=== PATIENT | female | born 1975 | race Caucasian/White ===

== ENCOUNTER 2021-07-13 21:39 | Observation (INO) | payer OTHER ==
[2021-07-13] MEDS ORDERED: Ondansetron PF 4 MG/2 ML Vial ONE (22:34)
[2021-07-13] MEDS ORDERED: Morphine 4 MG/ML VIAL ONE (22:34)
[2021-07-13 22:42] LABS: #Basophils 0.1 10x3/uL (0.0-0.2); #Eosinphils 0.2 10x3/uL (0.0-0.5); #Monocytes 0.7 10x3/uL (0.0-1.1); #Neutrophils 4.6 10x3/uL (1.5-8.4); %Basophils 0.7 % (0.0-2.0); %Eosinophils 1.8 % (0.0-6.0); %Lymphocytes 35.4 % (18.0-47.0); %Monocytes 8.5 % (0.0-10.0); %Neutrophils 53.3 % (40.0-75.0); Hemoglobin 12.3 g/dL (12.0-15.5); Mean Corpuscular HGB CONC 33.7 g/dL (32.0-36.0); Mean Corpuscular Hemoglobin 31.5 pg (27.0-33.0); Mean Corpuscular Volume 93.6 fl (81.6-98.3); Mean Platelet Volume 9.4 fl (7.4-10.4); Platelet Count 230 10x3/uL (150-450); RBC Distribution Width 12.6 % (11.5-14.5); White Blood Cell (WBC) Count 8.7 10x3/uL (3.5-10.5)
[2021-07-13 22:45] LABS: BHCG - Serum Negative (NEGATIVE); Pregs Control Background? CLEAR/WHITE (CLR/WHITE); Pregs Control Bar Appear? YES (CONTROL BAR)
[2021-07-13 22:52] LABS: ALT (SGPT) 19 U/L (8-55); AST (SGOT) 14 U/L (5-34); Albumin 3.5 g/dL (3.5-5.0); Alkaline Phosphatase 86 U/L (40-110); Anion Gap 11 mmol/L (10-20); BUN (Urea Nitrogen) 8 mg/dL (7.0-18.7); Bilirubin, Total 0.2 mg/dL (0.2-1.2); Calc. Creatinine Clearance 0 mL/min (70-130); Calcium 8.7 mg/dL (7.8-10.44); Carbon Dioxide 29 mmol/L (22-29); Chloride 102 mmol/L (98-107); Glucose 117 mg/dL (70-105); Lipase 25 U/L (8-78); Potassium 3.4 mmol/L (3.5-5.1); Protein, Total 6.5 g/dL (6.0-8.3); Sodium 139 mmol/L (136-145)
[2021-07-13 23:14] LABS: SARS-CoV-2 NAA Rapid Test Not Detected (NotDetected)
[2021-07-13] MEDS ORDERED: Dexamethasone 10 MG/ML VIAL ONE (23:22)
[2021-07-13 23:46] LABS: Bilirubin Neg (Negative); Blood, Urine Negative (Negative); Clarity Clear (Clear); Glucose, Urine (Dipstick) Normal (Negative); Ketone, Urine Negative (Negative); Leukocyte 25 (Negative); Nitrite Negative (Negative); Protein, Urine (Dipstick) 15 mg/dl (Neg-Trace); Specific Gravity, Urine 1.015 (1.002-1.036); Urobilinogen Normal mg/dL (Less than 2)
[2021-07-13 23:59] LABS: Bacteria/HPF Rare-Few HPF (None Seen); RBC/HPF 0-3 HPF (0-3)
[2021-07-14] MEDS ORDERED: HumaLOG 300 UNITS/3 ML VIAL SC PRN (01:04)
[2021-07-14] MEDS ORDERED: Guaifenesin DM 100-10/5 ML UDCUP PO PRN (01:04)
[2021-07-14] MEDS ORDERED: Acetaminophen 325 MG TAB PO PRN (01:04)
[2021-07-14] MEDS ORDERED: Calcium Carbonate 500 MG ChewTAB PO PRN (01:04)
[2021-07-14] MEDS ORDERED: Dextrose 5% in Water 1,000 ML IV PRN (01:04)
[2021-07-14] MEDS ORDERED: Dextrose 50% Abboject 50 ML SYRINGE SLOW IVP PRN (01:04)
[2021-07-14] MEDS ORDERED: Ondansetron PF 4 MG/2 ML Vial IVP PRN (01:04)
[2021-07-14] MEDS ORDERED: Ventolin HFA Inhaler 60 PUFF INHALER INH PRN (01:07)
[2021-07-14] MEDS ORDERED: Morphine 4 MG/ML VIAL SLOW IVP PRN (01:13)
[2021-07-14] MEDS ORDERED: Enoxaparin Sodium 30 MG/0.3 ML SYRINGE ONE (01:14)
[2021-07-14] MEDS ORDERED: Enoxaparin Sodium 100 MG/ML SYRINGE ONE (01:14)
[2021-07-14] MEDS ORDERED: Ventolin HFA Inhaler 60 PUFF INHALER INH SCH (01:15)
[2021-07-14] MEDS ORDERED: Pantoprazole 40 MG VIAL IVP SCH ×2 (01:15→21:00)
[2021-07-14] MEDS ORDERED: Sodium Chloride 0.9% 1,000 ML IV SCH (01:15)
[2021-07-14] MEDS ORDERED: Potassium Chloride 20 MEQ TAB PO SCH (01:15)
[2021-07-14] MEDS ORDERED: Morphine 4 MG/ML VIAL ONE (01:31)
[2021-07-14] MEDS ORDERED: Ondansetron PF 4 MG/2 ML Vial ONE (01:31)
[2021-07-14 03:06] VITALS: BMI 52.4
[2021-07-14] MEDS: HYDROcodone/Acetaminophen 5/325 mg Tablet PO PRN ×2 (03:51→10:20)
[2021-07-14] MEDS: Senokot S 8.6-50 MG TAB PO PRN (03:51)
[2021-07-14] MEDS: Zolpidem Tartrate 5 MG TAB PO PRN ×2 (03:52→20:37)
[2021-07-14] MEDS: ALPRAZolam 0.25 MG TAB PO PRN ×2 (03:52→20:38)
[2021-07-14 04:11] LABS: Legionella Urinary Ag Negative (Negative); Strep pneumo Urine Ag NEGATIVE (NEGATIVE)
[2021-07-14 05:05] LABS: ALT (SGPT) 20 U/L (8-55); AST (SGOT) 16 U/L (5-34); Albumin 3.7 g/dL (3.5-5.0); Alkaline Phosphatase 91 U/L (40-110); Anion Gap 16 mmol/L (10-20); BUN (Urea Nitrogen) 9 mg/dL (7.0-18.7); Bilirubin, Total 0.2 mg/dL (0.2-1.2); Calc. Creatinine Clearance 191 mL/min (70-130); Calcium 8.7 mg/dL (7.8-10.44); Carbon Dioxide 21 mmol/L (22-29); Chloride 105 mmol/L (98-107); Globulin 3.3 g/dL (2.4-3.5); Glucose 149 mg/dL (70-105); Potassium 4.2 mmol/L (3.5-5.1); Sodium 138 mmol/L (136-145)
[2021-07-14 05:20] LABS: #Monocytes 0.2 10x3/uL (0.0-1.1); #Neutrophils 5.5 10x3/uL (1.5-8.4); %Basophils 0.5 % (0.0-2.0); %Eosinophils 0.3 % (0.0-6.0); %Lymphocytes 21.7 % (18.0-47.0); %Monocytes 2.4 % (0.0-10.0); %Neutrophils 74.4 % (40.0-75.0); Hemoglobin 12.8 g/dL (12.0-15.5); Mean Corpuscular HGB CONC 33.6 g/dL (32.0-36.0); Mean Corpuscular Hemoglobin 31.5 pg (27.0-33.0); Mean Corpuscular Volume 93.8 fl (81.6-98.3); Platelet Count 182 10x3/uL (150-450); RBC Distribution Width 12.7 % (11.5-14.5); Red Blood Cell (RBC) Count 4.06 10x6/uL (3.90-5.03); White Blood Cell (WBC) Count 7.4 10x3/uL (3.5-10.5)
[2021-07-14 05:21] LABS: RBC Morphology Normal
[2021-07-14 05:22] LABS: Platelet Morphology Comment Appears Adequate
[2021-07-14] MEDS ORDERED: Levothyroxine Sodium 88 MCG TAB PO SCH (05:30)
[2021-07-14] MEDS: Venlafaxine HCl XR 75 MG CAP PO SCH (08:51)
[2021-07-14] MEDS: Fluticasone Propionate Nasal Spray 16 gm Bottle NASAL SCH (08:51)
[2021-07-14] MEDS: Topiramate 100 MG TAB PO SCH ×2 (08:51→20:38)
[2021-07-14] MEDS: Multivitamin W/ Minerals 1 TAB PO SCH (08:51)
[2021-07-14] MEDS: predniSONE 20 MG TAB PO SCH (08:51)
[2021-07-14] MEDS ORDERED: Ziprasidone 20 MG CAP PO SCH (21:00)
[2021-07-15] MEDS: Senokot S 8.6-50 MG TAB PO PRN (01:13)
[2021-07-15] MEDS: Zolpidem Tartrate 5 MG TAB PO PRN (01:14)
[2021-07-15] MEDS ORDERED: Levothyroxine Sodium 88 MCG TAB PO SCH ×2 (02:15→06:00)
[2021-07-15] MEDS: Topiramate 100 MG TAB PO SCH (08:31)
[2021-07-15] MEDS: predniSONE 20 MG TAB PO SCH (08:31)
[2021-07-15] MEDS: Multivitamin W/ Minerals 1 TAB PO SCH (08:31)
[2021-07-15] MEDS: Venlafaxine HCl XR 75 MG CAP PO SCH (08:31)
[2021-07-15] MEDS: Fluticasone Propionate Nasal Spray 16 gm Bottle NASAL SCH (08:32)
[2021-07-15 13:26] VITALS: BP 125/83; TEMP 96.7
== END 2021-07-15 15:42 | disposition home or self-care (01) ==
LOC: CSHERS 21:39 → CSHERHOLD 07-14 01:38 → INTOOBSV 07-14 01:38 → CSHTELE 07-14 02:59
PROVIDERS: ADMIT Student in an Organized Health Care Education/Training Program; ATTEND Internal Medicine
DX: R10.31 Right lower quadrant pain (principal); E87.6 Hypokalemia; R07.9 Chest pain, unspecified; R03.0 Elevated blood-pressure reading, without diagnosis of hypertension; F41.9 Anxiety disorder, unspecified; F31.9 Bipolar disorder, unspecified; F90.9 Attention-deficit hyperactivity disorder, unspecified type; Z79.899 Other long term (current) drug therapy; E66.01 Morbid (severe) obesity due to excess calories; J45.909 Unspecified asthma, uncomplicated; Z20.822 Contact with and (suspected) exposure to COVID-19
CPT/HCPCS: 36415; 36416; 71045; 71275; 74177; 80053; 81003; 81015; 83605; 83690; 83880; 84443; 84484; 84703; 85025; 87040; 87077; 87086; 87186; 87449; 87804; 87899; 93005; 93010; 94760; 96365; 96372; 96375; 96376; C9113; G0378; J1100; J1650; J1815; J1956; J2270; J2405; J7050; J7512; U0002

== ENCOUNTER 2022-07-14 18:37 | Emergency (ER) | payer OTHER ==
[~2022-07-14 18:37] MED LIST: Iopamidol 300 61% 100 ML VIAL FS ONE
[2022-07-14 19:39] LABS: #Basophils 0.1 10x3/uL (0.0-0.2); #Eosinphils 0.1 10x3/uL (0.0-0.5); #Monocytes 0.5 10x3/uL (0.0-1.1); #Neutrophils 4.9 10x3/uL (1.5-8.4); %Basophils 0.5 % (0.0-2.0); %Eosinophils 1.4 % (0.0-6.0); %Lymphocytes 39.4 % (18.0-47.0); %Monocytes 5.7 % (0.0-10.0); %Neutrophils 52.7 % (40.0-75.0); Hemoglobin 12.7 g/dL (12.0-15.5); Mean Corpuscular HGB CONC 35.2 g/dL (32.0-36.0); Mean Corpuscular Hemoglobin 30.7 pg (27.0-33.0); Mean Corpuscular Volume 87.2 fl (81.6-98.3); Platelet Count 217 10x3/uL (150-450); RBC Distribution Width 12.2 % (11.5-14.5); Red Blood Cell (RBC) Count 4.14 10x6/uL (3.90-5.03); White Blood Cell (WBC) Count 9.3 10x3/uL (3.5-10.5)
[2022-07-14 19:50] LABS: ALT (SGPT) 10 U/L (8-55); AST (SGOT) 11 U/L (5-34); Albumin 3.3 g/dL (3.5-5.0); Alkaline Phosphatase 68 U/L (40-110); Anion Gap 11 mmol/L (10-20); BUN (Urea Nitrogen) 9 mg/dL (7.0-18.7); Bilirubin, Total 0.4 mg/dL (0.2-1.2); Calc. Creatinine Clearance 0 mL/min (70-130); Calcium 8.4 mg/dL (7.8-10.44); Carbon Dioxide 26 mmol/L (22-29); Chloride 105 mmol/L (98-107); Estimated GFR 86; Globulin 2.4 g/dL (2.4-3.5); Glucose 93 mg/dL (70-105); Potassium 3.3 mmol/L (3.5-5.1); Protein, Total 5.7 g/dL (6.0-8.3); Sodium 139 mmol/L (136-145)
[2022-07-14] MEDS ORDERED: Acetaminophen 500 MG TAB ONE (20:08)
[2022-07-14] MEDS ORDERED: diphenhydrAMINE 50 MG/ML VIAL ONE (20:09)
[2022-07-14] MEDS ORDERED: Metoclopramide HCl 10 MG/2 ML VIAL ONE (20:09)
[2022-07-14] MEDS ORDERED: Ketorolac Tromethamine 30 MG/ML VIAL ONE (21:24)
[2022-07-14 22:52] LABS: Bilirubin Neg (Negative); Blood, Urine Negative (Negative); Clarity Clear (Clear); Glucose, Urine (Dipstick) Normal (Negative); Ketone, Urine Negative (Negative); Leukocyte Negative (Negative); Nitrite Negative (Negative); Protein, Urine (Dipstick) Negative (Neg-Trace); Specific Gravity, Urine 1.005 (1.005-1.030); Urobilinogen Normal mg/dL (Less than 2)
== END 2022-07-14 23:27 | disposition home or self-care (01) ==
LOC: CSHERS 18:37
DX: R07.89 Other chest pain (principal); R10.32 Left lower quadrant pain; R51.9 Headache, unspecified; E78.5 Hyperlipidemia, unspecified; E11.40 Type 2 diabetes mellitus with diabetic neuropathy, unspecified; E03.9 Hypothyroidism, unspecified
CPT/HCPCS: 71045; 74177; 80053; 81003; 83880; 84484; 85025; 85379; 93005; 96361; 96374; 96375; J1200; J1885; J2765; Q9967

== ENCOUNTER 2022-08-09 04:29 | Emergency (ER) | payer OTHER ==
[2022-08-09] MEDS ORDERED: Ibuprofen 200 MG TAB ONE (06:27)
== END 2022-08-09 06:20 | disposition home or self-care (01) ==
LOC: CSHERS 04:29
DX: S80.02XA Contusion of left knee, initial encounter (principal); S93.402A Sprain of unspecified ligament of left ankle, initial encounter; E11.9 Type 2 diabetes mellitus without complications; E78.5 Hyperlipidemia, unspecified; I10 Essential (primary) hypertension; E66.9 Obesity, unspecified; E03.9 Hypothyroidism, unspecified; W01.0XXA Fall on same level from slipping, tripping and stumbling without subsequent striking against object, initial encounter; Z79.899 Other long term (current) drug therapy; Z79.84 Long term (current) use of oral hypoglycemic drugs